=== PATIENT | male | born 1960 | race Caucasian/White ===

== ENCOUNTER 2019-05-21 08:53 | Inpatient (IN) | payer BC ==
[~2019-05-21] VITALS: Ht 177.8 cm; Wt 113.4 kg
[2019-05-21] MEDS ORDERED: PLEASE ENTER HEIGHT AND WEIGHT MC SCH (11:00)
[2019-05-21] MEDS ORDERED: ZOLPIDEM 5MG TABLET PO PRN (11:00)
[2019-05-21] MEDS ORDERED: PLEASE ENTER ALLERGIES MC SCH (11:00)
[2019-05-21] MEDS ORDERED: ACETAMINOPHEN 325 MG TABLET PO PRN (11:00)
[2019-05-21] MEDS ORDERED: BISACODYL 5 MG EC TABLET PO PRN (11:00)
[2019-05-21] MEDS ORDERED: ONDANSETRON 2MG/ML, 2ML IVP PRN (11:00)
[2019-05-21 12:02] LABS: MEAN CORPUSCULAR HEMOGLOBIN 31.4 pg (27.5-34.5); MEAN CORPUSCULAR HGB CONC 33.2 g/dL (33.2-36.2); MEAN CORPUSCULAR VOLUME 94.6 fL (81-97); MEAN PLATELET VOLUME 7.2 fL (7.4-10.4); PLATELET COUNT 238 x10^3/uL (130-400); RED CELL DISTRIBUTION WIDTH 13.4 % (9.4-14.8)
[2019-05-21 13:12] LABS: CHLORIDE 110 mmol/L (98-107)
[2019-05-21 13:34] LABS: ANION GAP 7 mmol/L (5-15); CALCIUM 9.1 mg/dL (8.5-10.1); CHOL/HDL RATIO 3.8; CHOLESTEROL, TOTAL 158 mg/dL (140-239); CREATININE 1.04 mg/dL (0.7-1.3); HDL CHOL % 27 % (26-37); HDL CHOLESTEROL (DIRECT) 42 mg/dL (40-60); LDL CHOLESTEROL,CALCULATED 90 mg/dL (54-169); LDL/HDL RATIO 2.1 (0.5-3.0); TRIGLYCERIDES 128 mg/dL (50-200); TROPONIN I < 0.015 ng/mL (0.000-0.045); VLDL CHOLESTEROL 26 mg/dL (0-25)
[2019-05-21 14:10] VITALS: BP 128/81
[2019-05-21 14:16] LABS: TROPONIN I < 0.015 ng/mL (0.000-0.045)
[2019-05-21 17:49] LABS: TROPONIN I < 0.015 ng/mL (0.000-0.045)
[2019-05-21 19:52] VITALS: BP 143/80
[2019-05-21] MEDS: SODIUM CHLORIDE FLUSH 10ML SYR IVF SCH (20:43)
[2019-05-22 01:31] VITALS: BP 120/78
[2019-05-22 07:50] VITALS: BP 148/90
[2019-05-22] MEDS: SODIUM CHLORIDE FLUSH 10ML SYR IVF SCH (08:45)
[2019-05-22 13:45] VITALS: BP 137/89
== END 2019-05-22 14:12 | disposition home or self-care (01) | DRG 313 ==
LOC: CARD 08:53 → 5SO 10:42 → DCLOUNGE 05-22 14:10
PROVIDERS: ADMIT Internal Medicine Cardiovascular Disease; ATTEND Internal Medicine Cardiovascular Disease
DX: R07.89 Other chest pain (principal); I49.3 Ventricular premature depolarization; R94.39 Abnormal result of other cardiovascular function study; R03.0 Elevated blood-pressure reading, without diagnosis of hypertension; I25.2 Old myocardial infarction; Z87.891 Personal history of nicotine dependence
CPT/HCPCS: 36415; 78452; 80048; 80061; 84484; 85027; 93005; 93017; 93306; G0378; A9502; C9898